=== PATIENT | female | born 2000 | race African-American/Black ===

== ENCOUNTER 2023-08-23 10:49 | Emergency (ER) | payer BC, SELFPAY ==
[2023-08-23 11:02] VITALS: BP 113/70; PULSE 83; RESP 15; TEMP 36.8; O2SAT 100
[2023-08-23 11:03] VITALS: BP 113/70; O2SAT 100
--- NOTE | 2023-08-23 11:07 | ECG_ITS ---
Measurements Intervals [place] Rate: 81 P: 39 WI: 151 QRS: 49 QRSD: 80 T: 63 QT: 365 QTc: 426 Interpretive Statements SINUS RHYTHM NO PREVIOUS ECG AVAILABLE FOR COMPARISON Electronically Signed On 08-23-2023 11:29:08 [employer] by July Ceja M.D.
[2023-08-23 11:11] VITALS: O2SAT 100
[2023-08-23 11:17] VITALS: BP 109/73; PULSE 86; O2SAT 100
[2023-08-23 11:32] VITALS: BP 108/74; PULSE 75; RESP 14; O2SAT 100
--- NOTE | 2023-08-23 12:53 | ED.GENADULT ---
HPI - General Adult General Chief complaint: Unspecified Stated complaint: infections Time Seen by Provider: 08/23/23 11:19 Source: patient Mode of arrival: ambulatory Limitations: no limitations History of Present Illness HPI narrative: this is a 23-year-old female who presents to the ED with multiple complaints. Reports multiple infections lately that she is unsure if related. reports some swelling to the distal ring finger of the right hand that eventually drained current material and has since improved she also wants couple of boil like lesions to the pubic area. reports vaginal discharge and is concern for STDs. Also reports 2-3 months of intermittent chest pains in the central chest. Denies fevers, chills, nausea, vomiting, abdominal pain, diarrhea. Related Data Allergies Allergy/AdvReac Type Severity Reaction Status Date / Time No Known Allergies Allergy Verified 08/23/23 13:11 Review of Systems Review of Systems: All systems as dictated in HPI Exam Narrative: GENERAL: Well-appearing, well-nourished, and in no acute distress. HEAD: Normocephalic, atraumatic. EYES: PERRLA and EOMI. ENT: Nares clear, no rhinorrhea or epistaxis. Mucous membranes moist. Oropharynx without tonsillar hypertrophy exudate or other lesions. NECK: Supple. No adenopathy or masses. CHEST: No respiratory distress. Clear to auscultation. No wheezes rales or rhonchi. chest wall tenderness to the left central chest that the costochondral junction. HEART: Regular rate and rhythm. No murmur heard. Normal peripheral pulses. ABDOMEN: Soft, nontender, nondistended, normal active bowel sounds. MSK: Normal range of motion. No edema. SKIN: Warm, dry, no rash. NEURO: Alert and oriented x3. No focal deficits. PSYCH: Normal mood and affect. exam deferred Course Vital Signs Vital signs: Vital Signs Temperature 98.3 F 08/23/23 11:02 Pulse Rate 83 08/23/23 11:02 Respiratory Rate 15 08/23/23 11:02 Blood Pressure 113/70 08/23/23 11:02 Pulse Oximetry 100 08/23/23 11:02 Oxygen Delivery Room Air 08/23/23 11:02 Temperature 98.2 F 08/23/23 14:13 Pulse Rate 74 08/23/23 14:13 Respiratory Rate 14 08/23/23 14:13 Blood Pressure 111/73 08/23/23 14:13 Pulse Oximetry 100 08/23/23 14:13 Oxygen Delivery Room Air 08/23/23 11:11 Medical Decision Making MDM Narrative Medical decision making narrative: This is a 23-year-old female presenting to the ED for multiple complaints. Several months of chest pain along with vaginal discharge and possible finger infection. Vitals are normal. She deferred on the exam. She self swabbed and those were negative. She still would like empiric treatment so that was started today. EKG and troponin are normal. She has chest wall tenderness indicating some costochondritis. Prescriptions for doxycycline and Flagyl were given. Pt will be discharged in stable condition. Return precautions given and supportive measures discussed. Pt is understanding and agreeable with plan for discharge and follow-up with PCP. Vital Signs Vital Signs: Vital Signs Temperature 98.3 F 08/23/23 11:02 Pulse Rate 83 08/23/23 11:02 Respiratory Rate 15 08/23/23 11:02 Blood Pressure 113/70 08/23/23 11:02 Pulse Oximetry 100 08/23/23 11:02 Oxygen Delivery Room Air 08/23/23 11:02 Temperature 98.2 F 08/23/23 14:13 Pulse Rate 74 08/23/23 14:13 Respiratory Rate 14 08/23/23 14:13 Blood Pressure 111/73 08/23/23 14:13 Pulse Oximetry 100 08/23/23 14:13 Oxygen Delivery Room Air 08/23/23 11:11 Lab Data 08/23/23 13:08 08/23/23 13:08 Labs: Lab Results 08/23/23 Range/Units 13:08 WBC 5.4 (4.5-10.0) K/mm3 RBC 4.28 (4.2-5.4) M/mm3 Hgb 12.4 (12.0-15.0) g/dL Hct 37.4 (37.0-47.0) % MCV 87.4 (80-100) fl MCH 29.0 (26-34) pg MCHC 33.2 (32-36) g/dl RDW 13.2 (11.5-14.5) % Plt
[2023-08-23] MEDS: Please add drug allergy info to patient profile. XX (13:11)
[2023-08-23 13:21] LABS: Basophils Percent Auto 0.4 % (0.2-1.2); Eosinophils Absolute Auto 0.1 K/mm3 (0-0.3); Eosinophils Percent Auto 2.2 % (0-4.4); Hematocrit 37.4 % (37.0-47.0); Hemoglobin 12.4 g/dL (12.0-15.0); Immature Granulocyte Absolute 0.01 K/mm3 (0.00-0.031); Immature Granulocyte Percent A 0.2 % (0-0.5); Lymphocytes Absolute Auto 2.34 K/mm3 (0.9-3.2); Lymphocytes Percent Auto 43.6 % (18.3-44.2); Mean Corpuscular HGB Conc 33.2 g/dl (32-36); Mean Corpuscular Volume 87.4 fl (80-100); Monocytes Absolute Auto 0.4 K/mm3 (0.1-0.6); Monocytes Percent Auto 7.1 % (2.6-8.5); Neutrophils Absolute Auto 2.5 K/mm3 (1.3-6.7); Neutrophils Percent Auto 46.5 % (45.5-73.1); Platelet Count Result 323 k/mm3 (150-375); Red Blood Count 4.28 M/mm3 (4.2-5.4); Red Cell Distribution Width 13.2 % (11.5-14.5); White Blood Count 5.4 K/mm3 (4.5-10.0)
[2023-08-23 13:26] LABS: Appearance Urine Clear (Clear); Bilirubin Urine Negative (Negative); Blood Urine Negative (Negative); Color Urine Yellow (Yellow); Glucose Urine UA Negative (Negative); Ketones Urine Negative (Negative); Leukocyte Esterase Ur Negative LEU/UL (Negative); Nitrate Urine Negative (Negative); Protein Urine Negative (Negative); Specific Grav Ur 1.012 (1.001-1.035); Urobilinogen Urine 0.2 mg/dL (<2.0); pH Urine 8.5 (5.0-9.0)
[2023-08-23 13:32] LABS: Alanine Aminotransferase 16 U/L (6-35); Albumin Level 3.8 g/dL (3.5-5.1); Alkaline Phosphatase 55 U/L (38-126); Anion Gap 3 mmol/L (8-16); Aspartate Amino Transferase 22 U/L (14-36); Bilirubin,Total 0.6 mg/dL (0.2-1.3); Blood Urea Nitrogen 11 mg/dL (7-17); Calcium 9.3 mg/dL (8.4-10.2); Carbon Dioxide 28 mmol/L (22-30); Chloride 105 mmol/L (98-107); Estimated CRCL calculation 64 ml/min; Estimated Glomerular Filt Rate > 60; Glucose 80 mg/dL (65-110); Sodium 136 mmol/L (137-145)
[2023-08-23 13:34] LABS: Add Urine Microscopic? NO
[2023-08-23 13:48] LABS: Troponin I < 0.012 ng/mL (0.000-0.034)
--- NOTE | 2023-08-23 13:50 | PC.NURSE ---
pt states they do not want an iv so they would not like iv antibiotics. pt educated on use and risks of not getting medication and pt still requests to not do an iv
[2023-08-23 14:13] VITALS: BP 111/73; PULSE 74; RESP 14; TEMP 36.8; O2SAT 100
[2023-08-23 14:27] LABS: Trichomonas Vag PCR NOT DETECTED (NOT DETECTE)
[2023-08-23 14:50] LABS: Chlamydia trachomatis NOT DETECTED (NOT DETECTE); Neisseria gonorrhoeae PCR NOT DETECTED (NOT DETECTE)
[2023-08-23] MEDS: LIDOCAINE HCL 1% LOCAL INJ 10 ML VIAL (15:16)
[2023-08-23] MEDS: cefTRIAXone 1 GM VIAL 0.5 GM IM (15:16)
== END 2023-08-23 15:21 | disposition home or self-care (01) ==
PROVIDERS: Emergency Provider Physician Assistant
DX: N89.8 Other specified noninflammatory disorders of vagina (principal)
CPT/HCPCS: 36415; 80053; 81003; 81025; 84484; 85025; 87491; 87591; 87661; 93005; 96372; 99284; J0696

== ENCOUNTER 2023-10-29 18:44 | Emergency (ER) | payer BC, SELFPAY ==
--- NOTE | 2023-10-29 19:03 | PC.NURSE ---
Pt on phone while RN attempting to obtain vital signs stating she is having abd pain that she rates 8.
[2023-10-29 19:04] VITALS: BP 133/87; PULSE 92; RESP 18; TEMP 36.4; O2SAT 100
[2023-10-29] MEDS: METOCLOPRAMIDE HCL INJ 10 MG/2 ML VIAL IM (20:28)
--- NOTE | 2023-10-29 23:33 | ED_ITS ---
HPI - Nausea/Vomiting/Diarrhea General Chief complaint: Nausea/Vomiting/Diarrhea Stated complaint: nauseated. positive preg test Time Seen by Provider: 10/29/23 20:22 History of Present Illness HPI Narrative: Patient LMP August presents here after positive test, with low er abdominal pain and some spotting that started today. Also nausea vomiting. Related Data Allergies Allergy/AdvReac Type Severity Reaction Status Date / Time No Known Allergies Allergy Verified 08/23/23 13:11 Review of Systems Review of Systems: CONST: No fever. HEENT: No sore throat C/V: No chest pain RESP: No cough GI: Reports abdominal pain, nausea : No dysuria. M/S: No joint pain. SKIN: No rash. NEURO: [No headache or focal numbness or weakness] PSYCH: [No depression] Exam Narrative: EXAMINATION OF ORGAN SYSTEMS/BODY AREAS: Constitutional: Vital signs per nursing GENERAL:[No acute distress, non-toxic appearing.] HEAD: Normal with no signs of head trauma. EYES: EOMI, conjunctiva normal ENT: Hearing grossly intact LUNGS: Nonlabored breathing. HEART: [Regular rate and rhythm] ABD: [Soft], [nontender to palpation] EXT: Normal range of motion SKIN: [No rashes or lesions.] NEURO: [Alert and oriented x 3. No gross focal sensory or strength deficits.] PSYCH: Normal affect Course Vital Signs Vital signs: Vital Signs Temperature 97.6 F 10/29/23 19:04 Pulse Rate 92 10/29/23 19:04 Respiratory Rate 18 10/29/23 19:04 Blood Pressure 133/87 10/29/23 19:04 Pulse Oximetry 100 10/29/23 19:04 Temperature 97.6 F 10/29/23 19:04 Pulse Rate 92 10/29/23 19:04 Respiratory Rate 18 10/29/23 19:04 Blood Pressure 133/87 10/29/23 19:04 Pulse Oximetry 100 10/29/23 19:04 MDM - Nausea/Vomiting/Diarrhea MDM Narrative Medical decision making narrative: Patient presenting with nausea vomiting, positive test at home, LMP 2 months ago. I did give her IM dose of Reglan, and on re-evaluation she is feeling much better no longer nauseous. I did try to do a bedside ultrasound and did see what appeared to be intrauterine gestational sac, did not seem consistent with her LMP, I did therefore order transvaginal ultrasound as well as blood work including ECG, however when ultrasound went to see the patient and with the tech went to draw her blood, patient had left without completing treatment. Lab Data Labs: UCG Bedside Result Positive Reference Range: Negative Discharge Plan Discharge Clinical Impression: Patient Disposition: Elopement After Seen by Prov Condition: Stable Prescriptions: No Action doxycycline hyclate 100 mg capsule 100 mg PO BID 7 Days Qty: 14 0RF metronidazole 500 mg tablet 500 mg PO Q8H Qty: 21 0RF Follow-up/Referrals: UNKNOWN,DOCTOR [Primary Care Provider] -
== END 2023-10-29 21:48 | disposition left against medical advice (07) ==
PROVIDERS: Emergency Provider Emergency Medicine
DX: O26.851 Spotting complicating pregnancy, first trimester (principal); Z3A.00 Weeks of gestation of pregnancy not specified; O26.891 Other specified pregnancy related conditions, first trimester; R10.30 Lower abdominal pain, unspecified; O21.9 Vomiting of pregnancy, unspecified
CPT/HCPCS: 81025; 96372; 99283; J2765

== ENCOUNTER 2024-03-11 10:35 | Emergency (ER) | payer BC, SELFPAY ==
--- NOTE | ~2024-03-11 | XR_ITS ---
EXAMINATION: XR chest 2V DATE: 03/11/2024 14:49 INDICATION: Cough and shortness of breath. . TECHNIQUE: Frontal and lateral views of the chest were obtained. COMPARISON: None. FINDINGS: There is no pneumonia, pleural effusion, or pneumothorax. The heart size is normal. IMPRESSION: 1. No acute cardiopulmonary disease. Reviewed, dictated and finalized at location A.
[2024-03-11 10:38] VITALS: BP 120/77; PULSE 86; RESP 16; TEMP 36.3; O2SAT 100
--- NOTE | 2024-03-11 10:43 | ECG_ITS ---
Test Date: 2024-03-11 10:43:55 Measurements Intervals [place] Rate: 117 P: 50 NH: 130 QRS: 59 QRSD: 73 T: 21 QT: 303 QTc: 424 Interpretive Statements SINUS TACHYCARDIA ABNORMAL RHYTHM ECG No previous ECG available for comparison Electronically Signed On 03-13-2024 12:50:50 CDT by Frank Rojas M.D.
[2024-03-11 11:00] LABS: Basophils Percent Auto 0.2 % (0.2-1.2); Eosinophils Absolute Auto 0.3 K/mm3 (0-0.3); Eosinophils Percent Auto 2.7 % (0-4.4); Hematocrit 34.8 % (37.0-47.0); Hemoglobin 12.1 g/dL (12.0-15.0); Immature Granulocyte Absolute 0.04 K/mm3 (0.00-0.031); Immature Granulocyte Percent A 0.3 % (0-0.5); Lymphocytes Percent Auto 13.3 % (18.3-44.2); Mean Corpuscular HGB Conc 34.8 g/dl (32-36); Mean Corpuscular Hemoglobin 31.3 pg (26-34); Mean Corpuscular Volume 89.9 fl (80-100); Mean Platelet Volume 8.8 fl (7.4-10.4); Monocytes Absolute Auto 0.8 K/mm3 (0.1-0.6); Monocytes Percent Auto 6.9 % (2.6-8.5); Neutrophils Absolute Auto 9.3 K/mm3 (1.3-6.7); Neutrophils Percent Auto 76.6 % (45.5-73.1); Platelet Count Result 270 k/mm3 (150-375); Red Blood Count 3.87 M/mm3 (4.2-5.4); White Blood Count 12.1 K/mm3 (4.5-10.0)
[2024-03-11 11:24] LABS: Alanine Aminotransferase 9 U/L (6-35); Albumin Level 3.7 g/dL (3.5-5.1); Alkaline Phosphatase 72 U/L (38-126); Anion Gap 7 mmol/L (4-12); Aspartate Amino Transferase 21 U/L (14-36); Bilirubin,Total 0.4 mg/dL (0.2-1.3); Blood Urea Nitrogen 4 mg/dL (7-17); Carbon Dioxide 22 mmol/L (22-30); Chloride 105 mmol/L (98-107); Estimated CRCL calculation 103 ml/min; Estimated Glomerular Filt Rate > 60; Glucose 78 mg/dL (65-110); Potassium 3.7 mmol/L (3.4-5.0); Sodium 134 mmol/L (137-145)
[2024-03-11 11:36] LABS: Troponin I < 0.012 ng/mL (0.000-0.034)
[2024-03-11 13:18] VITALS: PULSE 109; O2SAT 100
--- NOTE | 2024-03-11 14:30 | PC.NURSE ---
Pt refusing to get stuck again for an IV. Pt reports her arm hurts from previous blood draws and is refusing an IV at this time. EDP Dr. Ousmane richards.
--- NOTE | 2024-03-11 14:35 | ED.CHESTPAIN ---
HPI - Chest Pain General Chief Complaint: Chest Pain Stated Complaint: chest pain/25 weeks Time Seen by Provider: 03/11/24 13:18 History of Present Illness HPI narrative: 23-year-old female approximately 25 weeks gestation presenting with chest pain. Patient states that for the last few days she has had nasal congestion, sore throat, and cough. States that now she has some left-sided chest pain have feel short of breath. She is concerned she is dehydrated. No further complaints. Related Data Allergies Allergy/AdvReac Type Severity Reaction Status Date / Time No Known Allergies Allergy Verified 03/11/24 13:21 Review of Systems Review of Systems: All systems reviewed & are unremarkable except as noted in HPI and below Exam Narrative: GENERAL: Well-appearing, In no acute distress HEAD: Normocephalic, atraumatic. EYES: PERRLA and EOMI. ENT: + nasal congestion NECK: Supple. CHEST: Clear to auscultation. No respiratory distress. HEART: tachycardic, regular rhythm ABDOMEN: Soft, appropriately gravid, nontender EXTREMITIES: Normal range of motion. No edema. SKIN: Warm, dry, no rash. NEURO: No focal deficits. Alert and oriented x3. PSYCH: Normal mood and affect. Course Vital Signs Vital signs: Vital Signs Temperature 97.4 F L 03/11/24 10:38 Pulse Rate 86 03/11/24 10:38 Respiratory Rate 16 03/11/24 10:38 Blood Pressure 120/77 03/11/24 10:38 Pulse Oximetry 100 03/11/24 10:38 Oxygen Delivery Room Air 03/11/24 10:38 Temperature 97.4 F L 03/11/24 10:38 Pulse Rate 109 H 03/11/24 13:18 Respiratory Rate 16 03/11/24 10:38 Blood Pressure 120/77 03/11/24 10:38 Pulse Oximetry 100 03/11/24 13:18 Oxygen Delivery Room Air 03/11/24 13:18 MDM - Chest Pain MDM Narrative Medical decision making narrative: 23-year-old female with presenting with chest pain in the setting of . Patient is tachycardic in the 110s to 120s. Patient is refusing an IV. We discussed that puts her at higher risk for blood clots in the only way to evaluate for this would be with a CT PE. She continues to decline. she is alert, oriented, and she has decision-making capacity. She is able to voice understanding of the risks of not fully evaluating for PE. She is amenable to a COVID swab and chest x-ray. Blood work With leukocytosis. Chest x-ray without acute abnormalities. Patient is negative for COVID, influenza, RSV. Patient is resting comfortably on my re-evaluation. Discussed the reassuring workup. Feel she is safe for outpatient management. She is following up with a specialist on . Discussed appropriate supportive care. Appropriate return precautions given. Discharged in stable condition. Differential Diagnosis Differential diagnosis: Likely atypical chest pain, costochondritis, chest pain and other ( Viral URI, pneumonia) Medical Records Data Attestation: I reviewed the patient's medical records. Lab Data Attestation: I reviewed the patient's lab results. 03/11/24 10:53 03/11/24 10:53 Labs: Lab Results 03/11/24 03/11/24 Range/Units 10:53 14:50 WBC 12.1 H (4.5-10.0) K/mm3 RBC 3.87 L (4.2-5.4) M/mm3 Hgb 12.1 (12.0-15.0) g/dL Hct 34.8 L (37.0-47.0) % MCV 89.9 (80-100) fl MCH 31.3 (26-34) pg MCHC 34.8 (32-36) g/dl RDW 13.0 (11.5-14.5) % Plt Count 270 (150-375) k/mm3 MPV 8.8 (7.4-10.4) fl Immature Gran % (Auto) 0.3 (0-0.5) % Neut % (Auto) 76.6 H (45.5-73.1) % Lymph % (Auto) 13.3 L (18.3-44.2) % [place] % (Auto) 6.9 (2.6-8.5) % Eos % (Auto) 2.7 (0-4.4) % Baso % (Auto) 0.2 (0.2-1.2) % Lymph # (Auto) 1.60 (0.9-3.2) K/mm3 [place] # (Auto) 0.8 H (0.1-0.6) K/mm3 Eos # (Auto) 0.3 (0-0.3) K/mm3 Baso # (Auto) 0.0 (0.0-0.1) K/mm3 Abs Immat Gran (auto) 0.04 H (0.00-0.031) K/mm3 Absolute Neuts (auto) 9.3 H (1.3-6.7) K/mm3 Absolute Nucleated
[2024-03-11 15:35] LABS: Influenza A QL RT-PCR Negative (Negative); Influenza B QL RT-PCR Negative (Negative); RSV RNA, RT-PCR Negative (Negative); SARS-CoV-2 RNA PCR Negative (Negative)
== END 2024-03-11 16:27 | disposition home or self-care (01) ==
PROVIDERS: Student in an Organized Health Care Education/Training Program; Emergency Provider Emergency Medicine
DX: O99.512 Diseases of the respiratory system complicating pregnancy, second trimester (principal); J06.9 Acute upper respiratory infection, unspecified; O26.892 Other specified pregnancy related conditions, second trimester; R07.89 Other chest pain; Z20.822 Contact with and (suspected) exposure to COVID-19; O99.891 Other specified diseases and conditions complicating pregnancy; R00.0 Tachycardia, unspecified; Z3A.25 25 weeks gestation of pregnancy
CPT/HCPCS: 36415; 71046; 80053; 84484; 85025; 87637; 93005; 99284

== ENCOUNTER 2024-11-09 17:21 | Emergency (ER) | payer BC, SELFPAY ==
--- OUTSIDE RECORDS SUMMARY | 2024-11-09 17:25 | XMS_ITS | Clinical Summary ---
Author Organization [facility] Address [address] [place] [address] Care Team Providers Care Manager Clinical Applications Name Role Phone Unavailable Primary Care Provider Unavailabl e Source Comments [facility],non-owned Affiliates and Associated Physician Practices is amultiple site organization consisting of ambulatory clinics and hospital sitesin [place], [place], [place] and [place]. This disclosure is being madepursuant to the Care Everywhere program and may not contain all information available regarding this patient. Last updated 18.[facility] [employer] Allergies No known active allergies Medications * Be aware that medications may not be up to date on this document. Alwaysverify current medications with the patient. No known medications Active Problems Problem Noted Date Diagnosed Date Vaginal bleeding affecting early 02/05 Social History Tobacco Use Types Packs/Day Years Used Date Smoking Tobacco: Never Smokeless Tobacco: Never Alcohol Use Standard Drinks/Week Comments Never 0 (1 standard drink = 0.6 oz pur e alcohol) AUDIT-C Answer Date Recorded Frequency of Alcohol Consumption Never 04/19/2019 Average Number of Drinks Not on file 019 Frequency of Binge Drinking Not on file 11/2018 Comments No Sex and Gender Information Value Date Recorded Sex Assigned at Not on file Legal Sex Female 5:44 AM [employer]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[employer] Gender Identity Not on file Sexual Orientation Not on file Last Filed Vital Signs Vital Sign Reading Time Taken Comments Blood Pressure 113/80 04/19/2019 8:46 PM CDT Pulse 126 04/19/2019 8:46 PM CDT Temperature 36.8 C (98.2 F) 02/05/2021 11:42 AM CDT Respiratory Rate 22 04/19/2019 8:46 PM CDT Oxygen Saturation 100% 04/19/2019 8:46 PM CDT Inhaled Oxygen Concentration - - Weight 61.7 kg (136 lb) 02/05/2021 11:42 AM CDT Height 160 cm (5' 3 ) 02/05/2021 11:42 AM CDT Body Mass Index 24.09 02/05/2021 11:42 AM CDT Plan of Treatment Health Maintenance Due Date Last Done Comments PAP SMEAR 2000 HIV SCREENING 2015 HPV VACCINE (1 - 3-dose series) 2015 HEPATITIS C SCREENING 08/12/2018 DTAP/TDAP/TD VACCINES (1 - Tdap) 2019 HEPATITIS B VACCINE (1 of 3 - 19+ 3-dose series) 2019 CHLAMYDIA/GONORRHEA SCREENING 02/05/2022 02/05/2021 COVID-19 VACCINE (1 - 2023-2 5 season) 2024 DEPRESSION SCREENING 07/16/2024 INFLUENZA VACCINE (Season Ended) 2025 05/18/20 10 ZOSTER VACCINE (1 of 2) 2050 HIB VACCINE Aged Out No longer eligi ble based on patient's age to complete this topic MENINGOCOCCAL (Group B) VACC INE SHARED DECISION-MAKING Aged Out No longer eligibl e based on patient's age to complete this topic MENINGOCOCCAL GROUPS A/C/Y/W VACCINE Aged Out No longer eligible b ased on patient's age to complete this topic PNEUMOCOCCAL VACCINE Aged Out No long er eligible based on patient's age to complete this topic Procedures Procedure Name Priority Date/Time Associated Diagnosis Comments CHLAMYDIA + GC AMPLIFIED PROBE Routine 02/05/2021 12:53 PM CDT Vaginal bleeding affecting early from Last 3 Months or Most Recently Relevant to Health Maintenance Results * (ABNORMAL) CHLAMYDIA + GC AMPLIFIED PROBE (STL) (02/05/2021 12:53 PM CDT) Chlamydia Amplified Probe Positive(A) Negative 02/05/2021 8:43 PM CDT [facility] GC Amplified Probe Negative Negative 02/05/2021 8:43 PM CDT [facility] Microbiology PART OF UTERINE CERVIX / Unknown Collection / Unknown 02/05/2021 12:53 PM CDT 02/05/2021 1:08 PM CDT Narrative [facility] - 02/05/2021 8:43 PM CDT Results based on detection/no detection of ribosomal RNA by amplified method. us Tiffany Giordano MD LAB - MICROBIOLOGY ORDERABLES Fi nal Result [facility] [address] [place] [address], [facility] [phone] from Last 3 Months or Most Recently Relevant to Health Maintenance Insurance ANTHEM ANTHEM
--- OUTSIDE RECORDS SUMMARY | 2024-11-09 17:25 | XMS_ITS | Data Portability ---
Author Organization [employer] , [facility]Danny Address [address] [place] [address] Care Team Providers Care School Manager Name Role Phone [facility] Administrator Supervisor Assessment No assessment recorded. Plan of Treatment Reminders Order Date Submit Date Provider Last Modified By Organization Details Last Modified Time Details Appointments None recorded. Lab streptococc us group B, culture, unspecified specimen 2023 024 [facility], [address] [place], [address], 4 09:32:15 Referral None recorded. Procedures None recorded. Surgeries None recorded. Imaging None recorded. Medication Orders None recorded. Patient TargetsNo targets recorded. Patient Instructions Encounter Date Encounter Id Patient Instructions Last Modified By Organization Details Last Modified Time 05/07/2024 [id number] 3rd Trimester Warning Signs: Call our office or go to labor and delivery for any the following: Blurring of vision or spots before your eyes and/or CRUZ Ruptured membranes or leakage of vaginal fluid -may be a steady trickle or large gush - may be clear, yellow, pink or green Decreased movement--if your baby has stopped moving or is moving less than it normally does. Vaginal bleeding--bright red bleeding and/or clots need medical care immediately. Any temperature above 100 degrees. Any burning or painful urination. Increased swelling in your face, hands, or feet. Stomach pains, cramps, nausea, or diarrhea. [email or web address] Not available 05/01/2024 13:59:26 Reason for Referral None Reported. Results Created Date Observation Date Name Description Value Unit Range Abnormal Flag Note LastModifiedBy Organization Detail LastModifiedTime 05/28/20 24 05/31/2024 STREP TOCOC CUS, GROUP B CULTU RE streptococcu s, group B culture SEE NOTE STREP TOCOC CUS, GROUP B CULTU RE Micro Numbe r: [id number] Test Statu s: Final Speci men Sourc e: Recto vagin al Speci men Quali ty: Adequ ate Resul t: No group B Strep tococ cus isola artem Note per CDC guide lines optim al recov rosina is achie michelle by swabb ing both the lower vagin a and rectu m (thro ugh the anal sphin cter) . Not Available [facility] [address], [place], [address], 05/31/2024 09:32:15 04/15/20 24 04/15/2024 US, obste tric No observ ation record ed. [facility] [place], [address], 04/16/2024 07:34:25 06/03/20 24 06/03/2024 US, obste tric, follo w-up No observ ation record ed. zoey Bonds [address], [facility], [place], [address], 06/05/2024 21:38:54 Result Notes None recorded. Problems Name Problem SNOMED Code Status Onset Date Resolution Date Notes Provider Name and Address Organization Details Recorded Time Gonorrhe a 51352871 Completed 202003/17/2021 Gonococc al infectio n, unspecif ied; Progress : Stable Added By: Nisha Crane Add to Current Problems : NO ProblemS tatus: Resolve Not Available [facility] 2 12:40:00 Urinary tract infectio us disease 64971336 Completed 202003/17/2021 Urinary tract infectio n, site not specifie d; Progress : Stable Added By: Rosario Cruz Add to Current Problems : NO ProblemS tatus: Resolve Not Available [facility] 2 12:39:59 Gestatio n period, 20 weeks 14279686 Completed 202003/17/2021 20 weeks gestatio n of pregnanc y; Progress : Stable Added By: Nisha Crane Add to Current Problems : NO ProblemS tatus: Resolve Not Available [facility] 2 12:40:03 Gestatio n period, 8 weeks 07959075 Completed 202003/17/2021 8 weeks gestatio n of pregnanc y; Progress : Stable Added By: Kay Hanna Add to Current Problems : NO ProblemS tatus: Resolve Not Available [facility] 2 12:39:59 Pregnanc y, childbir th and puerperi um finding Completed 202003/17/2021 Encounte r for supervis ion of normal first pregnanc y, first trimeste r; Progress : Stable Added By: Rosario Cruz Add to Current Problems : NO ProblemS tatus: Resolve Not Available [facility] 2 12:40:00 Pregnanc y, childbir th and puerperi um finding Completed 202003/17/2021 Encounte r for supervis ion of normal first pregnanc y, second trimeste r; Progress : Stable Added By: Kay Hanna Add to Current Problems : NO ProblemS tatus: Resolve Not Available [facility] 2 12:40:[address] Concept Completed 202003/17/2021 Encounte r for follow-u p examinat ion after complete d treatmen t for conditio ns other than malignan t neoplasm ; Progress : Stable Added By: Rosario Cruz Add to Current Problems : NO ProblemS tatus: Resolve Not Available [facility] 2 12:40:08 Gestatio n period, 16 weeks 94537198 Completed 202003/17/2021 16 weeks gestatio n of pregnanc y; Progress : Stable Added By: Shanita Hemphill Add to Current Problems : NO ProblemS tatus: Resolve Not Available [facility] 2 12:40:08 Gestatio n period, 12 weeks 17244213 Completed 202003/17/2021 12 weeks gestatio n of pregnanc y; Progress : Stable Added By: Shanita Hemphill Add to Current Problems : NO ProblemS tatus: Resolve Not Available [facility] 2 12:40:05 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 [id number] 9101 Completed 202003/17/2021 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 ; Progress : Stable Added By: Rosario Cruz Add to Current Problems : NO ProblemS tatus: Resolve Not Available [facility] 2 12:40:09 Syphilis test finding 304248567 Completed 202003/17/2021 Encounte r for screenin g for infectio ns with a predomin antly sexual mode of transmis jeanne; Progress : Stable Added By: Kay Hanna Add to Current Problems : NO ProblemS tatus: Resolve Not Available [facility] 2 12:40:03 Normal pregnanc y in primigra preethi 96234250804 4103 Active 2020 Phoebe Robertson MD [address] [place], [address] , [facility] 4 12:57:17 Gestatio n period, 29 weeks 26389281 Completed 202005/28/2021 29 weeks gestatio n of pregnanc y; Severity : Moderate Progress : Stable Added By: Phoebe Robertson Add to Current Problems : YES ProblemS tatus: Current Lenora Walsh CNM [address] [place], [address] , [facility] 1 19:52:40 Gestatio n period, 26 weeks 61172790 Completed 202003/17/2021 26 weeks gestatio n of pregnanc y; Progress : Stable Added By: Shanita Hemphill Add to Current Problems : NO ProblemS tatus: Resolve Not Available [facility] 2 12:40:05 Pregnanc y 30821827 Completed 202009/04/2024 Rosario Cruz [facility], [facility] 5 15:16:33 Antenata l screenin g Completed 202003/03/2024 Encounte r for other specifie d antenata l screenin g; Progress : Stable Added By: Sofia Pedersen Add to Current Problems : YES ProblemS tatus: Current Moy stiles, [facility] 4 12:52:17 Antenata l screenin g for malforma tion Completed 202003/17/2021 Encounte r for antenata l screenin g for malforma tions; Progress : Stable Added By: Nisha Crane Add to Current Problems : NO ProblemS tatus: Resolve Not Available [facility] 2 12:39:59 Acute vaginiti s 13540251 Completed 202003/03/2024 Acute vaginiti s; Progress : Stable Added By: Sofia Pedersen Add to Current Problems : YES ProblemS tatus: Current Moy Delarosa null, [place] [facility] 4 12:52:08 Gestatio n period, 36 weeks 30011567 Completed 202003/03/2024 36 weeks gestatio n of pregnanc y; Progress : Stable Added By: Shanita Hemphill Add to Current Problems : YES ProblemS tatus: Current Moy Delarosa null, [place] [facility] 4 12:52:21 Gestatio n period, 32 weeks 7884565 Completed 202003/03/2024 32 weeks gestatio n of pregnanc y; Progress : Stable Added By: Sofia Pedersen Add to Current Problems : YES ProblemS tatus: Current Moy Delarosa null, [facility] 4 12:52:12 Nausea 777126940 Completed 202303/03/2024 Rx for Zofran and Phenerga n sent in by Karla Haq NP on 11/23/23. Had previous ly tried/fa iled Unisom Vit B6. --> Update 11/30/23: Pt states Vitamin B6 and Unisom are not working to control sx. Pt does not care for the side effects of the Zofran and Phenerga n. Discusse d consider ation for Rx Reglan to be sent as alternat adriana. Pt amenable to POC. Rx sent. Plan to re-eval sx with use and discusse d when to notify HCP/go to ER. Pt states understa nding of POC. Moy Delarosa null, [facility] 4 12:52:28 Measles non-immu ne 331010134 Completed MMR after delivery Karissa salmeron, CNM [address] [place] [address], [phone] , [facility] 4 12:09:09 Uterine size for dates discrepa ncy 307425446 Completed 2023 s/p MFM consult Phoebe Robertson MD [address] [place] [address], [phone] , [facility] 4 12:09:19 Uterine size for dates discrepa ncy 767922421 Active 2023 s/p MFM consult Phoebe Robertson MD [address] [place] [address], [phone] , [facility] 4 12:09:20 Past pregnanc y history of shoulder dystocia 870215205 Completed posterio r arm delivere d and baby delivere d w/in 60 seconds CECI HAAS DO [address] [place] [address], [phone] , [facility] 4 11:47:43 Problem Notes None recorded. Procedures Surgical History Date Name Laterality Status Provider Name and Address Organization Details Recorded Time 11/30/2023 Date of Last Pap Smear completed Moy Delarosa [facility] 03/03/2024 12:55:17 Imaging Results Imaging Date Name Status LastModified by Organiz ation Details LastModified Time 04/15/2024 US, obstetric completed [facility] [address] [place] [address], [address], 04/16/2024 07:34:25 06/03/2024 US, obstetric, follow-up completed zoey Bonds [address], [place], [address], 06/05/2024 21:38:54 Procedure Notes None recorded. Medical Equipment None Reported. Allergies No known drug allergies Medications Name Sig Start Date Stop Date Status Note LastModified by Organization Details LastModified Time id now [email or web address] 2.0 diagnosti c test TEST DIRECTED TODAY 01/02 completed Not Available Not Available Not Available Vitamin B-6 25 mg tablet TAKE ONE TABLET BY MOUTH EVERY 6 HOURS FOR VITAMIN DEFICIAN CY 11/29 completed Not Available Not Available Not Available promethaz ine 25 mg rectal supposito ry Insert 1 supposit ory every 4-6 hours by rectal route for 60 days. 11/29 completed Not Available Not Available Not Available metronida zole 0.75 % (37.5 mg/5 gram) vaginal gel Insert 1 applicat orful every day by vaginal route at bedtime for 5 days. 03/03 completed Not Available Not Available Not Available amoxicill in 500 mg tablet take 1 tablet (500 mg) by oral route every 12 hours for 10 days 11/29 completed amoxicil alli 500 mg oral tablet RxNorm: [id number] Allow Substitu tion: True Refill Denied: No Edited by: Rosario Brink) on 11/30/19 Stopped by: Rosario Brink) on 11/30/19 Not Available Not Available Not Available ondansetr on 8 mg disintegr ating tablet Place 1 tablet every 8 hours by translin gual route. 03/03 completed Not Available Not Available Not Available cimetidin e 200 mg tablet take 1 tablet (200 mg) by oral route as needed, max. 400 mg/day 11/22 completed cimetidi ne 200 mg oral tablet RxNorm: [id number] Allow Substitu tion: True Refill Denied: No Edited by: Leela andujar(Dc noJames) on 03/31/20 21 Stopped by: Leela andujar(Dc no, Anja B) on Not Available Not Available Not Available cephalexi n 500 mg capsule 04/23 completed Not Available Not Available Not Available promethaz ine 25 mg tablet Take 1 tablet every 4-6 hours by oral route as needed for 30 days, for nausea. 11/29 completed Not Available Not Available Not Available ceftriaxo ne 500 mg solution for injection Inject 500 mg IM route once 05/28 completed cefTRIAX one 500 mg injectio n Solution , Reconsti tuted RxNorm: [id number] Allow Substitu tion: True Refill Denied: No Edited by: Jazlyn Starkey) on 11/12/19 Stopped by: Jazlyn Starkey) on Not Available Not Available Not Available ibuprofen 600 mg tablet TAKE 1 TABLET BY MOUTH EVERY 6 HOURS NEEDED FOR PAIN 11/29 completed Not Available Not Available Not Available Pepcid 20 mg tablet Take 1 tablet twice a day by oral route. 04/04 completed Not Available Not Available Not Available albuterol sulfate HFA 90 mcg/actua tion aerosol inhaler INHALE TWO PUFFS BY MOUTH EVERY 4 HOURS NEEDED FOR BREATHIN G active Not Available Not Available No t Available metoclopr amide 10 mg tablet take 1 tablet (10 mg) by oral route every 6 hours as needed. 03/03 completed Not Available Not Available Not Available 3-Day Vaginal 2 % cream Insert 1 applicat orful every day by vaginal route at bedtime for 3 days. 03/03 completed Not Available Not Available Not Available azithromy alice 500 mg tablet take 2 tablets (1,000 mg) by oral route once 05/28 completed azithrom ycin 500 mg oral tablet RxNorm: [id number] Allow Substitu tion: True Refill Denied: No Edited by: Jazlyn Starkey) on 11/12/19 Stopped by: Jazlyn Starkey) on Not Available Not Available Not Available Sleep Aid (doxylami ne) 25 mg tablet TAKE ONE TABLET BY MOUTH EVERY NIGHT AT BEDTIME 03/03 completed Not Available Not Available Not Available nitrofura ntoin monohydra te/macroc rystals 100 mg capsule TAKE ONE CAPSULE BY MOUTH EVERY TWELVE HOURS FOR 7 DAYS FOR INFECTIO N 05/19 completed Not Available Not Available Not Available Vitamins with Minerals 28 mg iron-800 mcg tablet Take 1 tablet every day by oral route for 30 days. 03/03 completed Not Available Not Available Not Available 11/22 completed Allow Substitu tion: False Refill Denied: No Refill DateOccu rred: 10/30/19 21 Edited by: Shanita Voss) on 10/30/19 21 Stopped by: Shanita Voss) on Not Available Not Available Not Available 28 mg iron-800 mcg tablet TAKE ONE TABLET BY MOUTH EVERY DAY active Not Available Not Available No t Available Estarylla 0.25 mg-0.035 mg tablet TAKE 1 TABLET BY MOUTH EVERY DAY 11/22 completed Not Available Not Available Not Available Vitals Date Recorded Body weight Body mass index (BMI) Body height Body temperature Systolic blood pressure Diastolic blood pressure Provider Name and Address Organization Details Last Updated DateTime 4 44562.9 74953 g 28.9 kg/m2 160.02 cm 98.1 [degF] 100 mm[Hg] 60 mm[Hg] Sophia Juani [facility] 4 15:53:13 Date Recorded Body height Body mass index (BMI) Body weight Systolic blood pressure Diastolic blood pressure Provider Name and Address Organization Details Last Updated DateTime 05/19/2024 160.02 cm 29.4 kg/m2 41745.33 g 90 mm[Hg] 50 mm[Hg] Clayton Yuan [facility] 4 15:22:15 Date Recorded Body height Body mass index (BMI) Body weight Body temperature Systolic blood pressure Diastolic blood pressure Provider Name and Address Organization Details Last Updated DateTime 4 160.02 cm 29.8 kg/m2 23671.9 6 g 97.4 [degF] 110 mm[Hg] 68 mm[Hg] Nancie Mcdonalder [facility] 4 14:34:50 Date Recorded Body height Body mass index (BMI) Body weight Systolic blood pressure Diastolic blood pressure Provider Name and Address Organization Details Last Updated DateTime 06/03/2024 160.02 cm 30.1 kg/m2 47410.98 g 100 mm[Hg] 62 mm[Hg] Clayton Yuan [facility] 14:12:49 Date Recorded Body height Provider Name an d Address Organization Details Last Updated DateTime 06/10/2024 160.02 cm Lata Messina [facility] 06/10/2024 11:14:37 Date Recorded Body weight Body temperature Systolic blood pressure Diastolic blood pressure Provider Name and Address Organization Details Last Updated DateTime 06/10/2024 57082.29 527 g 97.5 [degF] 118 mm[Hg] 72 mm[Hg] Lata Avaloswilliamsissa [facility] 11:16:42 Social History Question Answer Notes LastModified by Organizat ion Details LastModified Time Tobacco Smoking Status Never Smoker Lata Messina go, [facility] 11/02/2023 11:45:30 What Is Your Level Of Alcohol Consumption? Occasional [email or web address] Information not available 11/02/2023 How Many Times Per Week Do You Consume Alcohol? Less Than 1 Time Per Week [email or web address] Information not available 11/02/2023 If You Are , What Was Your Level Of Alcohol Consumption Prior To ? None Information not available 11/02/2023 How Many Years Have You Consumed Alcohol? 20 [email or web address] Information not available 11/02/2023 Are You Blind Or Do You Have Difficulty Seeing? No [email or web address] Information not available 11/02/2023 Are You Currently Employed? Yes Information not available 11/02/2023 Are You Deaf Or Do You Have Serious Difficulty Hearing? No [email or web address] Information not available 11/02/2023 What Type Of Diet Are You Following? REGULAR [email or web address] Information not available 11/02/2023 What Is The Highest Grade Or Level Of School You Have Completed Or The Highest Degree You Have Received? 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 1 [email or web address] Information not available 11/02/2023 What Is Your Relationship Status? Single [email or web address] Information not available 11/02/2023 Are You Sexually Active? Yes Information not available 11/02/2023 What Types Of Sporting Activities Do You Participate In? Walking [email or web address] Information not available 04/04/2024 Do You Use Any Illicit Or Recreational Drugs? No [email or web address] Information not available 11/02/2023 Do You Or Have You Ever Used Any Other Forms Of Tobacco Or Nicotine? No [email or web address] Information not available 11/02/2023 Sex: Unknown Functional Status Question Answer Note LastModified by Organization D etails LastModified Time What is your exercise level? Moderate [email or web address] Information not available 11/02/2023 Mental Status None recorded. Family History Relationship Description Onset Age of this Age Resolved Age Notes LastModified by Organization Details LastModified Time Father No current problems or disability [email or web address] Not available 05/28 19:55:21 Mother Diabetes mellitus [email or web address] Not available 2023 11:30:13 Medical History Condition Response Other Cancer N High Blood Pressure N Colon Cancer N Cytomegalovirus N Hyperthyroidism N MRSA N Blood Transfusion N Herpes (HSV) N Breast Cancer N Lung Cancer N Hypothyroidism N Depression N Incontinence N Panic Attacks N Neurological Disorder N Deep Vein Thrombosis N Anxiety Disorder N Autoimmune disease N Arthritis N Shingles N Tuberculosis/Positive PPD N Infertility N Polycystic Ovarian Syndrome N Cervical Cancer N Chlamydia N Hematuria N Stroke N Varicosities N Seasonal allergies N Crohn's Disease N Alzheimer's/Dementia N COPD/Emphysema N Endometriosis N HPV/Genital Warts N IBS (Irritable Bowel Syndrome) N History of Abnormal Pap N High Cholesterol N Liver Disease N Kidney Infection N Fibromyalgia N Ulcer N Kidney Disease N HIV N Gallbladder disease N Von Willebrand disease N Sickle Cell Disease/Trait N ADD/ADHD N Eating Disorder N Diabetes Mellitus (non-insulin dependent ) N Anemia N Ovarian Problems N Multiple Sclerosis N Gonorrhea N Frequent Urinary Tract infections N Osteopenia N Headaches/migraines N GERD (reflux) N Ovarian Cancer N Diabetes (insulin dependent) N Seizures/Epilepsy N Breast Problems N Fibroids N Asthma N Heart Attack N Endometrial Cancer N Lupus N Rubella N Blood Clotting Disorder N Bipolar Disorder N Diabetes Mellitus (during ) N Ulcerative Colitis N Hepatitis N Heart Disease N Pulmonary Embolism N RPR N Chicken Pox N Osteoporosis N Gynecological History Statement/Question Response Flow Moderate Date of last HPV Date of LMP 09/14/2023 HPV Vaccine Y Duration of Flow (days) 5 Most Recent Mammogram Current Control Method Age at Menarche 11 If Post Menopausal, Age at Menopause Date of Last Colonoscopy Most Recent Bone Density Frequency of Cycle (Q days) 28 Date of Last Pap Smear 11/30/2023 Obstetrics History GPAL:G 2 P 1 0 0 1 Type Value Full Term 1 Living 1 Total 2 Past Encounters Encounter ID Performer Location Encounter Start Date Encounter Closed Date Diagnosis/Indication Diagnosis SNOMED-CT Code Diagnosis ICD10 Code Diagnosis Note [id number] Lenora Walsh CNM [address] [address] 05/28/2021 12:01:57 05/28/2021 20:05:16 Normal in primigravida 7907614400 05497 Z34.03 .COUNSELIN G was provided today regarding the following topics: All risks and benefits of induction of labor were discussed with the patient. intoleranc e to labor and arrest of labor progress resulting in section were reviewed in detail. Pt wishes to proceed. Gestation period, 38 weeks 52840289 Z3A.38 [id number] DEONTE Newton [address] [address] 11/02/2023 10:56:50 11/02/2023 12:06:00 test positive 020044410 Z32.01 26849052 Z33.1 viable SIUP at 7.0 weeks gestationE DD 06/20/24FHT s 121 bpm Nausea and vomiting 1692 1999 R11.2 *nausea of - advised patient to keep cracker at the bedside to eat before getting out of bed in the morning, eat smaller more frequent meals during the day, and avoid mixing solids and liquids in the same meal. add protein snack at bedtime; Vit B6 & unisom as needed [id number] DEONTE Newton [address] [place] [address] 11/23/2023 10:45:34 11/23/2023 13:44:13 Nausea and vomiting 08498667 R11.2 Rx for phenergan rectal suppositor y and zofran advised patient to keep crackers at the bedside to eat before getting out of bed in the morning, eat smaller more frequent meals during the day, and avoid mixing solids and liquids in the same meal. add protein snack at bedtime; continue B6 and unisom in addition to new prescripti ons. 56141715 Z33.1 FHTs heard- 165 bpm. Additional diagnosis detail: , incidental [id number] DEONTE Monson [facility] [address] [place] [address] 11/30/2023 09:57:57 12/06/2023 13:32:29 Routine care 651426788 Z34.91 1. IUP FWB reassuring by + FHT noted on BSUS. Aneuploidy screening: UNITY NIPT added to NOB labs; results pending. Plan to discuss MSAFP after 15 wks. Anatomy Scan:2. NOB labs drawn on 11/30/23. Pap with GCCT collected and sent. GTT: GBS: ____3. Hx: [id number] L1, X 14. Nausea - Rx for Zofran and Phenergan sent in by Karla Haq NP on 11/23/23. Had previously tried/fail ed Unisom Vit B6. --> Update 11/30/23: Pt states Vitamin B6 and Unisom are not working to control sx. Pt does not care for the side effects of the Zofran and Phenergan. Discussed considerat ion for Rx Reglan to be sent as alternativ e. Pt amenable to POC. Rx sent. Plan to re-eval sx with use and discussed when to notify HCP/go to ER. Pt states understand ing of POC.5. Threatened Ab - Pt notes bleeding in early , but nothing recently. No blood in vault, but cervix friable with pap collection . Pap with vag cx collected and sent on 11/30/23. Further POC pending lab result review. A+ per prior OB records. No need for Rhogam. Pt educated on TAB Precaution s and discussed when to notify HCP/go to ER. Pt states understand ing of POC.6. Cramping - pt states happens when she's on her feet a lot at work. Pt states sx resolve with rest. James has already given her a restrictio ns note. 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 Last day on 12/07/23. Pt does not work over the Summer. Pap with GCCT collected and sent. Discussed eating smaller/mo re frequent meals, pushing p.o. water intake, using anti-emeti c medication s to reduce n/v sx, and on OTC pain meds as needed. Pt educated on TAB precaution s and discussed when to notify HCP/go to ER. Pt states understand ing of POC.7. Delivery Plans:8. PP Contracept ion Plans: Follow up in 4 weeks.Enoch tional diagnosis detail: First trimester screening 2437 37942 Z36.9 Additional diagnosis detail: screening encounter Screening for malignant neoplasm of cervix 500711840 Z12.4 Nausea and vomiting 1693 2000 O21.9 Additional diagnosis detail: Nausea/vom iting in Carrier de tection, molecular genetics 9504301 Z14.8 Pain in female pelvis 42 3795820 O26.899 R10.2 Additional diagnosis detail: Pelvic pain in Threatened miscarriage 93918313 O20.0 Additional diagnosis detail: Threatened [id number] [facility] [address] [place] [address] 01/03/2024 11:57:05 01/03/2024 12:29:42 Alpha-fetoprotein blood test status 938185556 Z36.1 DeclinedAd ditional diagnosis detail: Need for maternal serum alpha-prot ein (MSAFP) screening Gestation period, 15 weeks [id number] Z3A.15 Additional diagnosis detail: 15 weeks gestation of [id number] CRISTEL [facility] [address] [place] [address] 02/04/2024 09:43:12 02/04/2024 10:42:16 screening [id number] Z36.9 Gestation period, 20 weeks 14893823 Z3A.20 screening for malformation 816886968 Z36.3 Symmetrica l small for gestational age fetus [id number] P05.[address] Haas. Will get TORCH panel today and repeat growth in 4 weeks. Small Baby IUGR Growth Restrictio nParvoviru s B19 antibodies IgG, IgMToxopla sma antibody IgGCytomeg alovirus Antibodies IgG, IgM(IgG shows past infection) care status 24 4457949 Z34.92 Additional diagnosis detail: care in second trimester [id number] Phoebe Robertson MD [address] [address] 03/03/2024 12:11:01 03/03/2024 14:42:37 Normal 15856464 Z34.82 Uterine si ze for dates discrepancy 367611653 O26.842 Refer to [facility] Gestation period, 24 weeks 199150213 Z3A.24 Gastroesop hageal reflux disease 186511319 K21.9 [id number] Phoebe Robertson MD [address] [address] 04/04/2024 11:10:03 04/04/2024 12:26:52 Normal 93096463 Z34.83 Gestation period, 29 weeks 95977184 Z3A.29 screening 2437 42633 Z36.89 Dysuria 45474882 R30.0 Vaginal discharge 738166 006 N89.8 Depression screening 171 408100 Z13.32 [id number] Lenora Walsh CNM [address] [address] 04/23/2024 15:20:32 04/23/2024 15:55:31 Normal 35944917 Z34.83 Denies vaginal bleeding, abdominal cramps, N/V, contractio ns, and LOF. Denies headache, vision changes, swelling of hands or face, or epigastric pain. Reports active movement. movement awareness discussed. PTL precaution s reviewed Gestation period, 31 weeks 82540509 Z3A.31 Recurrent upper respiratory tract infection 789459070 J06.[id number] [address] 05/07/2024 15:37:28 05/07/2024 16:47:12 Normal 91943309 Z34.83 Denies vaginal bleeding, abdominal cramps, N/V, contractio ns, and LOF. Denies headache, vision changes, swelling of hands or face, or epigastric pain. Reports active movement. movement awareness discussed. PTL precaution s reviewed Gestation period, 33 weeks 27204381 Z3A.33 [id number] Karissa salmeron, [facility] [address] [place] [address] 05/19/2024 14:51:15 05/19/2024 16:58:00 Normal 68127060 Z34.83 Gestation period, 35 weeks 02155086 Z3A.35 [id number] Frank Haq, DO [facility] [address] [place] [address] 05/28/2024 14:25:43 06/02/2024 11:10:04 screening 915451247 Z36.85 Normal 9983541 2 Z34.83 1. We will order for an ultrasound to be done before next visit.2. Discussed induction of labor at the next appointmen t. [id number] Karissa salmeron, [facility] [address] [place] [address] 06/03/2024 12:41:41 06/03/2024 15:08:24 Normal 83045870 Z34.82 Gestation period, 37 weeks 94250452 Z3A.37 [id number] CECI HOMERO, DO [facility] [address] [place] [address] 06/10/2024 11:05:21 06/10/2024 11:49:47 Normal 77169497 Z34.82 Gestation period, 38 weeks 36350092 Z3A.38 Health Concerns Section Related Observation LastModified by Organization Detai ls LastModified Time None Recorded Concern Status LastModified by Organization Details LastModified Time None Recorded Advance Directives Directive None Recorded Payers Encounter Date Sequence Insurance Name Policy Number Policy Manriquez Covered Member ID Manriquez Member ID Guarantor Name 05/07/2024 1 [place] [id number] Irene Sebastian [id number] Irene Sebastian 05/19/2024 1 [place] [id number] Irene Sebastian [id number] Irene Sebastian 05/28/2024 1 [place] [id number] Irene Sebastian [id number] Irene Sebastian 06/03/2024 1 [place] [id number] Irene Sebastian [id number] Irene Sebastian 06/10/2024 1 [place] [id number] Irene Sebastian [id number] Irene Sebastian Notes Date Note Type Note Provider Name and Address Organization Details Recorded Time 05/07/2024 text/html Patient is here today for a routine OB visit. She is currently at {{6 7 8 9 10 11 12 13 14 15 16 17 18 1 9 20 21 22 23 24 25 26 27 28 29 30 31 32 33 34 35 36 37 3 8 39 40 41 33.5#}} weeks gestation. vitamins: {{yes* no}} She {{has* has not}} felt movement. She denies any complaints of the presence of vaginal bleed, leaking fluid, abdominal cramps, nausea, vomiting, headache or visual disturbances. Lenora Walsh, [facility] [address] [place], [address], [facility] [employer] 05/07/2024 17:10:46 05/19/2024 text/html Patient is here today for a routine OB visit. She is currently at {{6 7 8 9 10 11 12 13 14 15 16 17 18 1 9 20 21 22 23 24 25 26 27 28 29 30 31 32 33 34 35 36 37 3 8 39 40 41 35.3#}} weeks gestation. vitamins: {{yes* no}} She {{has* has not}} felt movement. She denies any complaints of the presence of vaginal bleed, leaking fluid, abdominal cramps. Pt c/o nausea, vomiting , headache or visual disturbances. Pt states she is feeling contractions Karissa Mejia, [facility] [address] [place], [address], [facility] [employer] [facility] 05/19/2024 15:56:49 05/28/2024 text/html [facility] OB Return VisitReported bypatient. symptoms: movement normal; normal vaginal discharge/no ROM; no bleeding; pelvic pressure; no contractions/mild cramping only Gastrointestinal:na usea Cardiovascular:richard a Musculoskeletal:no joint pain Neurologic:no headache; no visual changes Breast:plans to breast feed Social/psychiatric issues:no reported concerns with support system; no anxiety; no symptoms of depression The patient verbally consented to documentation via virtual scribe for this encounter.Patient is here today for a routine OB visit. She is currently at 36.5 weeks gestation. She is taking vitamins. She has felt movement.She reports her last delivery was at 39 weeks and 3 days gestation and was induced due to a large size. She has a history of dystocia with her last delivery.She denies any complaints of the presence of vaginal bleed, leaking fluid, abdominal cramps, nausea, vomiting, headache or visual disturbances. Frank Haq DO [facility], [facility] [place], [address], [employer] 05/31/2024 14:43:33 06/03/2024 text/html Patient is here today for a routine OB visit. She is currently at {{6 7 8 9 10 11 12 13 14 15 16 17 18 1 9 20 21 22 23 24 25 26 27 28 29 30 31 32 33 34 35 36 37 3 8 39 40 41 37.4#}} weeks gestation. vitamins: {{yes* no}} She {{has* has not}} felt movement. She denies any complaints of the presence of vaginal bleed, leaking fluid, abdominal cramps, nausea, vomiting, headache or visual disturbances. No concerns Karissa Mejia CNM [address] [facility], [place], [address], [employer] 06/03/2024 14:23:16 06/10/2024 text/html Patient is here today for a routine OB visit. She is currently at 38.4 weeks gestation. vitamins: {{yes* no}} She {{has* has not}} felt movement.She denies any complaints of the presence of vaginal bleed, leaking fluid, abdominal cramps, nausea, vomiting, headache or visual disturbances. CECI HAAS, DO [address] [facility], [place], [address], [facility] 06/10/2024 11:48:36 OBGyn Episode Ob Episode Information Episode Created Date Number of Fetuses Patient Bloodtype Patient rh Status Prepregnancy Weight lbs Domestic Partner Domestic Partner Phone Father Name Supervisor [employer] Status 05/28/20 21 1 CLOSED Fetus Data First Name Last Name Admitted to NICU Weight (g) Sex Living Outcome Pediatric Complications Fetus ID Race Codes Race Delivery Type M Full Term [id number] Anthony Calculation Initial Anthony Date Initial Exam Date Initial Exam Provider Initial Ultrasound Date Last Menstrual Period Date Ultra Sound Weeks Gestation 06/08/2021 05/28/2021 10/29/2020 09/01/2020 8 Eighteen To Twenty Week Anthony Update Ultra Sound Date Fundal Height At Umbil Quickening Date Ultra Sound Latest Weeks Gestation Final Anthony Confirmed By Final Anthony Confirmed Date Final Anthony Date Ultra Sound Latest Days Gestation 0 06/08/20 21 0 Pre-donn Flowsheet Flowsheet Date 05/28/2021 Katz Score Blood Edema Fundus Height Fundus Units Glucose Ketones Leukocytes Nitrite Labor Signs Protein Cervic Dilation Cervic Effacement Cervic Station Type Weight in lbs Pre/Post Dialysis Refused BP Diastolic BP Location Tested BP Systolic BP Type Fetus Heart Rate Present Fetus Movement Comments Flowsheet Date 05/28/2021 Katz Score Blood Edema Fundus Height Fundus Units Glucose Ketones Leukocytes Nitrite Labor Signs Protein Cervic Dilation Cervic Effacement Cervic Station trace 39 [place] 1cm 50% -2 Type Weight in lbs Pre/Post Dialysis Refused BP Diastolic BP Location Tested BP Systolic BP Type 74 L arm 128 sitting Fetus Heart Rate Present A 154 Fetus Movement A Yes Comments GBS: Positive- For Abx in [place] bor. A positive/Rubella immune Sickle cell negative. 28 wks GCT 105; H/H 11.1/33.93. CT/NG: NORI neg. 4. Heartburn: tums working; pepcid recommended for increasing complaints. 5. Wants to schedule IOL with Joby. IOL scheduled for 06/02 @ 0100. Menstrual History Last Menstrual Date Menses Monthly On Bcp Conception Prior Menses Frequency Hcg Plus Date Menarche Onset Age 0209/01/2020 Genetic Screening And Infection History Question Response Note Mental Retardation/Autism false [place]'s [place] false If Yes, Was Person Tested For Fragile X? false Other Inherited Genetic Or Chromosomal Disorder false If Yes, Agent(s) And Strength/Dosage false Sickle Cell Disease Or Trait () false Personal or Family History of Congenital Heart D efect false Rash Or Viral Illness Since Last Menstrual Perio d false Muscular Dystrophy false Medications (including Suppl ements, Vitamins, Herbs, OTC Drugs), Illicit/Recreational Drugs, Alcohol false Other Structural Defect false Down Syndrome false Recent Travel History Outside of Country false Cystic Fibrosis false Any Other Genetic History false Emmanuel Disease false Other Infection History false Thalassemia (Nigerien, Ugandan, Mediterranean, Or Background): MCV < 80 false Patient Or Baby's Father Had A Child With Defects Not Listed Above false Live With Someone With TB Or Exposed To TB false Patient's Age Will Be 35 Years Or Older At Estim ated Date of Delivery false Recurrent Loss, Or A Stillbirth false Hemoglobinopathy Or Carrier false Patient Or Partner Has History Of Genital Herpes false Intellectual Disability/Autism false Maternal Metabolic Disorder (eg, Type 1 Diabetes , PKU) false History of Hepatitis false Benitez-Sachs (eg, Islam, Cajun, Khmer-Lebanese) f alse History Of STD, Gonorrhea, Chlamydia, HPV, Syphi lis false Prior GBS-infected child false History of HIV false Personal or Family History o f Neural Tube Defect (Meningomyelocele, Spina Bifida, Or Anencephaly) false Hemophilia Or Other Blood Disorders false Delivery Information Delivery Date Delivery Type Labor Anesthesia Weeks Gestation Incision Type Labor Labor Length Hrs Delivered By Post Complications Tubal Sterilization Discharge Date Comments 1 39.3 Juliann Mehta MD 06/06/2021 Discharge Information Feeding Method Contraceptive Method Maternal HG B and HCT Levels Ob Episode Information Episode Created Date Number of Fetuses Patient Bloodtype Patient rh Status Prepregnancy Weight lbs Domestic Partner Domestic Partner Phone Father Name Supervisor [employer] Plant Status 11/23/19 24 1 A Positive CLOSED Fetus Data First Name Last Name Admitted to NICU Weight (g) Sex Living Outcome Pediatric Complications Fetus ID Race Codes Race Delivery Type F Problems Problem Notes Problem Name Start Date End Date Resolution Snomed Code Not e Measles non-immune 377833901 M MR after delivery Uterine size for dates discrepancy 03/03/2024 [id number] s/p MFM consult Past history of shoulder dystocia [id number] posteri or arm delivered and baby delivered w/in 60 seconds Anthony Calculation Initial Anthony Date Initial Exam Date Initial Exam Provider Initial Ultrasound Date Last Menstrual Period Date Ultra Sound Weeks Gestation 06/20/2024 11/02/2023 09/14/2023 6 Eighteen To Twenty Week Anthony Update Ultra Sound Date Fundal Height At Umbil Quickening Date Ultra Sound Latest Weeks Gestation Final Anthony Confirmed By Final Anthony Confirmed Date Final Anthony Date Ultra Sound Latest Days Gestation 0 awittler 11/26/2023 06/20/20 24 0 Pre- Flowsheet Flowsheet Date 11/23/2023 Katz Score Blood Edema Fundus Height Fundus Units Glucose Ketones Leukocytes Nitrite Labor Signs Protein Cervic Dilation Cervic Effacement Cervic Station Type Weight in lbs Pre/Post Dialysis Refused Weight 138.609029963404 BP Diastolic BP Location Tested BP Systolic BP Type 68 110 Fetus Heart Rate Present Fetus Movement Comments Flowsheet Date 11/30/2023 Katz Score Blood Edema Fundus Height Fundus Units Glucose Ketones Leukocytes Nitrite Labor Signs Protein Cervic Dilation Cervic Effacement Cervic Station none none Other (see comments ) neg Type Weight in lbs Pre/Post Dialysis Refused With clothes 137.905746427337 BP Diastolic BP Location Tested BP Systolic BP Type 60 106 sitting Fetus Heart Rate Present A 165 Present Fetus Movement A Yes Comments See Visit Plan/Above Problem List. Flowsheet Date 01/03/2024 Katz Score Blood Edema Fundus Height Fundus Units Glucose Ketones Leukocytes Nitrite Labor Signs Protein Cervic Dilation Cervic Effacement Cervic Station Type Weight in lbs Pre/Post Dialysis Refused 141.051822904343 BP Diastolic BP Location Tested BP Systolic BP Type 58 104 Fetus Heart Rate Present A 144 Fetus Movement A Yes Comments MSAFP declined, Reviewed Bertha sles NI and MMR in PP, FU in 4 weeks for Anatomy US Flowsheet Date 02/04/2024 Katz Score Blood Edema Fundus Height Fundus Units Glucose Ketones Leukocytes Nitrite Labor Signs Protein Cervic Dilation Cervic Effacement Cervic Station none Type Weight in lbs Pre/Post Dialysis Refused With clothes 148.358035931780 BP Diastolic BP Location Tested BP Systolic BP Type 68 106 sitting Fetus Heart Rate Present A 152 Present Fetus Movement A Yes Comments Anatomy today complete. SGA 5.2%tile, HC 5.2%tile, AC 8.9%tile. Normal AFV, normal cervical length, anterior placenta. Discussed with Dr. Plascencia- will get TORCH panel today and repeat growth in 4 weeks. Flowsheet Date 03/03/2024 Katz Score Blood Edema Fundus Height Fundus Units Glucose Ketones Leukocytes Nitrite Labor Signs Protein Cervic Dilation Cervic Effacement Cervic Station none none none neg Type Weight in lbs Pre/Post Dialysis Refused With clothes 153.607816092464 BP Diastolic BP Location Tested BP Systolic BP Type 64 98 sitting Fetus Heart Rate Present A 145 Present Fetus Movement A Yes Comments Follow up u/s confirms today size less than dates. TORCH panel screen negative (CMV/Parvo B19 both IGG pos, IGM neg). Refer to M.c/o intermittent chest pain. On further questioning CP likely related to GERD symptoms. She is currently using Tums. Start Pepcid 20 mg BID and if CP returns, patient should go to the hospital for evaluation. Flowsheet Date 04/04/2024 Katz Score Blood Edema Fundus Height Fundus Units Glucose Ketones Leukocytes Nitrite Labor Signs Protein Cervic Dilation Cervic Effacement Cervic Station none 28 cm none none neg Type Weight in lbs Pre/Post Dialysis Refused With clothes 156.312432122158 BP Diastolic BP Location Tested BP Systolic BP Type 50 110 sitting Fetus Heart Rate Present A 135 Fetus Movement A Yes Comments 3T labs today. c/o vaginal d ischarge. no itchiness or irritation. Tdap/Flu vaccine recommended. Discussed Peds selection/breast pump. Flowsheet Date 04/23/2024 Katz Score Blood Edema Fundus Height Fundus Units Glucose Ketones Leukocytes Nitrite Labor Signs Protein Cervic Dilation Cervic Effacement Cervic Station none neg Type Weight in lbs Pre/Post Dialysis Refused With clothes 161.331087763893 BP Diastolic BP Location Tested BP Systolic BP Type 60 100 sitting Fetus Heart Rate Present A 147 Fetus Movement A Yes Comments No OB concerns. Pt was seen in ED for SOB - concerned about asthma since ED doc told that it is most likely related to that. Will send pulmonology referral. Inhaler sent. F/u in 2 wks Flowsheet Date 05/07/2024 Katz Score Blood Edema Fundus Height Fundus Units Glucose Ketones Leukocytes Nitrite Labor Signs Protein Cervic Dilation Cervic Effacement Cervic Station none trace Type Weight in lbs Pre/Post Dialysis Refused With clothes 163.257551413851 BP Diastolic BP Location Tested BP Systolic BP Type 60 100 sitting Fetus Heart Rate Present A 158 Fetus Movement A Yes Comments Was seen at the hospital for PTL - was 1 cm. Continues to have ctx frequently. Some days they are getting more intense. Off work for contractions until 36 wks. PTL precautions reviewed in detail. F/u in 2 wks. Flowsheet Date 05/19/2024 Katz Score Blood Edema Fundus Height Fundus Units Glucose Ketones Leukocytes Nitrite Labor Signs Protein Cervic Dilation Cervic Effacement Cervic Station 37 cm none trace Type Weight in lbs Pre/Post Dialysis Refused With clothes 166.939992926086 BP Diastolic BP Location Tested BP Systolic BP Type 50 90 sitting Fetus Heart Rate Present A 140 Fetus Movement Comments Ctx continue ~15-20 minutes apart reviewed strict PTL precautions Flowsheet Date 05/28/2024 Katz Score Blood Edema Fundus Height Fundus Units Glucose Ketones Leukocytes Nitrite Labor Signs Protein Cervic Dilation Cervic Effacement Cervic Station Type Weight in lbs Pre/Post Dialysis Refused With clothes 168.768089067238 BP Diastolic BP Location Tested BP Systolic BP Type 68 L arm 110 sitting Fetus Heart Rate Present Fetus Movement Comments Flowsheet Date 06/03/2024 Katz Score Blood Edema Fundus Height Fundus Units Glucose Ketones Leukocytes Nitrite Labor Signs Protein Cervic Dilation Cervic Effacement Cervic Station none trace Type Weight in lbs Pre/Post Dialysis Refused With clothes 169.382793064339 BP Diastolic BP Location Tested BP Systolic BP Type 62 100 sitting Fetus Heart Rate Present Fetus Movement A Yes Comments 21%st no ob concerns today Flowsheet Date 06/10/2024 Katz Score Blood Edema Fundus Height Fundus Units Glucose Ketones Leukocytes Nitrite Labor Signs Protein Cervic Dilation Cervic Effacement Cervic Station none neg Type Weight in lbs Pre/Post Dialysis Refused With clothes 171.713005717853 BP Diastolic BP Location Tested BP Systolic BP Type 72 118 sitting Fetus Heart Rate Present A 145 Fetus Movement A Yes Comments no ob complaints and pt does n't have any questions for IOLlabor/srom precuations given Menstrual History Last Menstrual Date Menses Monthly On Bcp Conception Prior Menses Frequency Hcg Plus Date Menarche Onset Age 0309/14/2023 Genetic Screening And Infection History Question Response Note Prior GBS-infected child false Personal or Family History of Congenital Heart D efect false Maternal Metabolic Disorder (eg, Type 1 Diabetes , PKU) false Recurrent Loss, Or A Stillbirth false Genetic Carrier Screen positive false Patient Or Partner Has History Of Genital Herpes false Patient's Age Will Be 35 Years Or Older At Estim ated Date of Delivery false Personal or Family History o f Neural Tube Defect (Meningomyelocele, Spina Bifida, Or Anencephaly) false History of HIV false Delivery Information Delivery Date Delivery Type Labor Anesthesia Weeks Gestation Incision Type Labor Labor Length Hrs Delivered By Post Complications Tubal Sterilization Discharge Date Comments 4 Sponta neous 39 Discharge Information Feeding Method Contraceptive Method Maternal HG B and HCT Levels Ob Episode Information Episode Created Date Number of Fetuses Patient Bloodtype Patient rh Status Prepregnancy Weight lbs Domestic Partner Domestic Partner Phone Father Name Supervisor [employer] Plant Status 11/30/19 24 1 DELETED Anthony Calculation Initial Anthony Date Initial Exam Date Initial Exam Provider Initial Ultrasound Date Last Menstrual Period Date Ultra Sound Weeks Gestation 0 Eighteen To Twenty Week Anthony Update Ultra Sound Date Fundal Height At Umbil Quickening Date Ultra Sound Latest Weeks Gestation Final Anthony Confirmed By Final Anthony Confirmed Date Final Anthony Date Ultra Sound Latest Days Gestation 0 0 Menstrual History Last Menstrual Date Menses Monthly On Bcp Conception Prior Menses Frequency Hcg Plus Date Menarche Onset Age Delivery Information Delivery Date Delivery Type Labor Anesthesia Weeks Gestation Incision Type Labor Labor Length Hrs Delivered By Post Complications Tubal Sterilization Discharge Date Comments 3 7 Discharge Information Feeding Method Contraceptive Method Maternal HG B and HCT Levels
--- OUTSIDE RECORDS SUMMARY | 2024-11-09 17:25 | XMS_ITS | Referral Summary ---
Author Organization [place] [id number] [facility] Address [address] [place] [address] Care Team Providers Care Machine Group Leader Name Role Phone Jean Claude Preston MD Primary Care Provider Juliann Mehta MD Unavailable [phone] Allergies No known active allergies Medications 28 mg iron- 800 mcg tablet 04/22/2021 Active albuterol HFA (PROVENTIL HFA,VENTOLIN HFA,PROAIR HFA) 90 mcg/actuation inhaler Inhale 2 puffs every 6 (six) hours as needed for wheezing Active acetaminophen (TYLENOL) 500 mg tablet Take 2 tablets (1,000 mg total) by mouth every 6 (six) hours as needed for pain 80 tablet 06/15/2024 Active docusate sodium (COLACE) 100 mg capsuleIndicati ons:constipatio n,Stool Softener Take 1 capsule (100 mg total) by mouth 2 (two) times a day 30 capsule 3 06/15/2024 Active ibuprofen (ADVIL,MOTRIN) 600 mg tabletIndicatio ns:Cramps Take 1 tablet (600 mg total) by mouth every 6 (six) hours as needed for pain 40 tablet 06/15/2024 Active Active Problems Problem Noted Date Diagnosed Date 39 weeks gestation of 06/14/2024 Encounter for induction of labor 06/02/2021 Social History Tobacco Use Types Packs/Day Years Used Date Smoking Tobacco: Never Tobacco Cessation:Counseling Given: Not Answered Social Connection and Isolat ion Panel [NHANES] Answer Date Recorded In a typical week, how many times do you talk on the phone with family, friends, or neighbors? More than three times a week 05/01/2024 How often do you get togethe r with friends or relatives? More than three times a week 05/01/2024 How often do you attend chur ch or caodaism services? Never 05/01/2024 Do you belong to any clubs o r organizations such as buddhist groups, unions, fraternal or athletic groups, or school groups? Yes 05/01/2024 How often do you attend meet ings of the clubs or organizations you belong to? More than 4 times per year 05/01/2024 Are you , , di vorced, , never , or living with a partner? Living with partner 05/01/2024 AUDIT-C Answer Date Recorded Q1: How often do you have a drink containing alcohol? Never 06/13/2024 Q2: How many drinks containi ng alcohol do you have on a typical day when you are drinking? Patient does not drink Q3: How often do you have si x or more drinks on one occasion? Never 06/13/2024 Overall Financial Resource Strain (CARDIA) Answe r Date Recorded How hard is it for you to pa y for the very basics like food, housing, medical care, and heating? Not hard at all 06/13/2024 PHQ-2 Answer Date Recorded PHQ-2 Total Score (If total score is 3 or more points, staff should administer the PHQ-9) 2 05/01/2024 [facility]at [facility] - Occupational Stress Questionnaire Answer Date Recorded Do you feel stress - tense, restless, nervous, or anxious, or unable to sleep at night because your mind is troubled all the time - these days? Not at all 05/01/2024 Hunger Vital Sign Answer Date Recorded Within the past 12 months, y ou worried that your food would run out before you got the money to buy more. Never true 06/13/20 24 Within the past 12 months, t he food you bought just didn't last and you didn't have money to get more. Never true 06/13/2024 PRAPARE - Transportation Answer Date Re corded In the past 12 months, has l ack of transportation kept you from medical appointments or from getting medications? No 05/17 In the past 12 months, has l ack of transportation kept you from meetings, work, or from getting things needed for daily living? No 06/13/2024 [place] Depression Scale Answer Date Recorded [place] Depression Scale Total 5 06/15/2024 The thought of harming myself has occurred to me . Never 06/15/2024 Housing Stability Vital Sign Answer Wojciech e Recorded In the last 12 months, was t here a time when you were not able to pay the mortgage or rent on time? No 06/13/2024 Number of Times Moved in the Last Year Not on fi le 06/13/2024 At any time in the past 12 m [facility], were you homeless or living in a longterm (including now)? No 06/13/2024 Personal Safety Answer Date Recorded Have you ever been in or are you currently in a harmful physical or emotional relationship or is someone making you feel afraid or unsafe? Denies 06/13/2024 Comments No Sex and Gender Information Value Date Recorded Sex Assigned at Not on file Legal Sex Female 6:01 AM DIRT SHOVELER Gender Identity Not on file Sexual Orientation Not on file Last Filed Vital Signs Vital Sign Reading Time Taken Comments Blood Pressure 103/56 06/15/2024 6:28 AM DIRT SHOVELER Pulse 73 06/15/2024 6:28 AM DIRT SHOVELER Temperature 36.7 C (98 F) 06/15/2024 6:28 AM DIRT SHOVELER Respiratory Rate 18 06/14/2024 8:20 PM DIRT SHOVELER Oxygen Saturation 100% 06/14/2024 11:40 AM DIRT SHOVELER Inhaled Oxygen Concentration - - Weight 77.6 kg (171 lb) 06/13/2024 6:43 AM DIRT SHOVELER Height 160 cm (5' 3 ) 06/13/2024 6:43 AM DIRT SHOVELER Body Mass Index 30.29 06/13/2024 6:43 AM DIRT SHOVELER Plan of Treatment Not on file Procedures Procedure Name Priority Date/Time Associated Diagnosis Comments N. GONORRHOEAE/C. TRACHOMATIS AMPLIFICATION STAT 05/05/2024 9:22 AM CDT from Last 3 Months or Most Recently Relevant to Health Maintenance Results * N. gonorrhoeae/C. trachomatis Amplification Urine (05/05/2024 9:22 AM CDT) C. trachomatis Not Detected Not Detected Comment:Testing performed by : [facility], [address] [place] [address]., [id number] N. gonorrhoeae Not Detected Not Detected TIEN VÁSQUEZ Comment: Interpretive Data This assay detects Chlamydia trachomatis and Neisseria gonorrhoeae by nucleic acid amplification testing (NAAT). This assay has been cleared by the [place] Food and Drug administration. The performance characteristics of this test have been verified by the [facility]. The performance characteristics of this test have not been evaluated in individuals less than 14 years of age. Current Interpretive Data last revised 2023. Testing performed by: [facility], [address] [place] [address]., [id number] Urine (None) 05/05/2024 9:22 AM CDT 05/05/2024 9:35 AM CDT Simone Crawford MD LAB MICROBIOLOGY - GEN ERAL ORDERABLES Final Result TIEN VÁSQUEZ [address] [facility] Department [place] [address] from Last 3 Months or Most Recently Relevant to Health Maintenance Insurance Member Subscriber Plan / Payer (Ef fective 2023-Present) Name:Irene Sebastian Relation to Subscriber:Self Name:Irene Sebastian Payer ID:[id number] (NAIC) Type: [employer] Address: [facility] [id number] [place] [id number] [facility] ANTH ACCESS CHOICE Advance Directives For more information, please contact: [phone] * Full Code (Latest Code Status on File) Date Activated Date Inactivated Comments 06/13/2024 6:02 AM 06/15/2024 3:50 PM Full CPR in case of cardiopulmonary arrest * Full Code Date Activated Date Inactivated Comments 06/04/2021 4:08 PM 06/06/2021 4:45 PM * Full Code Date Activated Date Inactivated Comments 06/03/2021 9:16 AM 06/04/2021 4:07 PM Full CPR i n case of cardiopulmonary arrest Care Teams Machine Group Leader Relationship Specialty Start Date End Date Jean Claude Preston MD PCP - General 4/8/21 Juliann Mehta MD [address] [place] [address] Consulting Physician Obstetrics and Gynecology 06/06/21
--- OUTSIDE RECORDS SUMMARY | 2024-11-09 17:25 | XMS_ITS | Clinical Summary ---
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 Never 05/01/2024 Do you belong to any clubs o r organizations such as yazidi groups, unions, fraternal or athletic groups, or [...] staff should administer the PHQ-9) 2 05/01/2024 [facility] Occupat ional [facility] - Occupational Stress Questionnaire Answer Date Recorded [...] things needed for daily living? No 06/13/2024 [place] Depression Scale Answer Date Recorded [place] Depression Scale Total 5 06/15/2024 The thought [...] any time in the past 12 m onths, were you homeless or living in a retirement (including now)? No 06/13/2024 Personal Safety Answer Date Recorded Have you ever been in or are you currently in a harmful physical or emotional relationship or is someone making you feel afraid or unsafe? Denies 06/13/2024 Comments No Sex and Gender Information Value Date Recorded Sex Assigned at Not on file Legal Sex Female 6:01 AM AUTOMATIC TIRE TESTER Gender Identity Not on file Sexual Orientation Not on file Obstetrics History Para Term AB IAB SAB Ectopic Multiple Livin g Live Births 3 2 2 1 1 0 2 2 Date Outcome GA Total Labor Labor/2nd/3rd Weight Sex Type Anes PTL Rachel A1 A5 Name Clin 2020 Term 39w 3d 1h 34m 1h 30m/0h 04m 3.49 kg (7 lb 11.1 oz) M Vag-Sp ont Epidur al N Livin g 6 8 RAEANN SEBASTIAN, Jaime hanks MD Complications:Shoulder Dysto taj Delivery Location:[facility] Main C ampus ([facility]) 2022 SAB 2023 Term 39w 0d 2h 04m 1h 45m/0h 15m/0h 04m 3.39 kg (7 lb 7.6 oz) F Vagina l Epidur al N Livin g 7 8 Anila Flanagan CNM Complications:None Delivery Location:[facility] Main C ampus ([facility]) Last Filed Vital Signs Vital Sign Reading Time Taken Comments Blood Pressure 103/56 06/15/2024 6:28 AM AUTOMATIC TIRE TESTER Pulse 73 06/15/2024 6:28 AM AUTOMATIC TIRE TESTER Temperature 36.7 C (98 F) 06/15/2024 6:28 AM AUTOMATIC TIRE TESTER Respiratory Rate 18 06/14/2024 8:20 PM AUTOMATIC TIRE TESTER Oxygen Saturation 100% 06/14/2024 11:40 AM AUTOMATIC TIRE TESTER Inhaled Oxygen Concentration - - Weight 77.6 kg (171 lb) 06/13/2024 6:43 AM AUTOMATIC TIRE TESTER Height 160 cm (5' 3 ) 06/13/2024 6:43 AM AUTOMATIC TIRE TESTER Body Mass Index 30.29 06/13/2024 6:43 AM AUTOMATIC TIRE TESTER Plan of Treatment Health Maintenance Due Date Last Done Comments Cervical Cancer Screening 2000 Hepatitis C Screening 2000 HPV Vaccines (2 - 2-dose series) 08/09/2012 02/07/2012 Regular Well Visit/Exam 18-64 2018 DTaP/Tdap/Td Vaccine (7 - Td or Tdap) 02/06/2022 02/07/2012, 05/26/2005, 11/26/2001, Additional history exists Influenza Vaccine (#1) 2024 05/18/2010 Chlamydia and Gonorrhea (GC/CT) Screening 05/05/2025 05/05/2024 Depression Screening 06/15/2025 06/15/2024, 05/01/2024, 05/01/2024 Hepatitis B Screening Completed 02/27/2001 , 2000, 2000, Additional history exists Pneumococcal vaccine <65 Aged Out 001, 2000, 2000 No longer eligible based on patient's age to complete this topic Varicella Vaccines Completed 03/18/2009, 08/22/2001 Procedures Procedure Name Priority Date/Time Associated Diagnosis Comments N. GONORRHOEAE/C. TRACHOMATIS AMPLIFICATION STAT 05/05/2024 9:22 AM CDT from Last 3 Months or Most Recently Relevant to Health Maintenance Results * N. gonorrhoeae/C. trachomatis Amplification Urine (05/05/2024 9:22 AM CDT) C. trachomatis Not Detected Not Detected Comment:Testing performed by : [facility], [address] [place] [address]., [id number] N. gonorrhoeae Not Detected Not Detected TIEN VÁSQUEZ Comment: Interpretive Data This assay detects Chlamydia trachomatis and Neisseria gonorrhoeae by nucleic acid amplification testing (NAAT). This assay has been cleared by the [place] Food and Drug administration. The performance characteristics of this test have been verified by the [facility]. The performance characteristics of this test have not been evaluated in individuals less than 14 years of age. Current Interpretive Data last revised 2023. Testing performed by: [facility], [address] [place] [address]., [id number] Urine (None) 05/05/2024 9:22 AM CDT 05/05/2024 9:35 AM CDT Simone Crawford MD LAB MICROBIOLOGY - GEN ERAL ORDERABLES Final Result TIEN THALIA [address] [facility] [place] [address] from Last 3 Months or Most Recently Relevant to Health Maintenance Insurance DALY ACCESS CHOICE [facility] ANTHHandseeing Information ACCESS CHOICE Advance Directives For more information, please contact: [phone] * Full Code (Latest Code Status on [...] n case of cardiopulmonary arrest Care Teams Teaching Aide Relationship Specialty Start Date End Date Jean Claude Preston MD PCP - General 10/21/20 Juliann Mehta MD [facility] [place] [address] Consulting Physician Obstetrics and Gynecology 06/06/21
--- OUTSIDE RECORDS SUMMARY | 2024-11-09 17:25 | XMS_ITS | Clinical Summary ---
Author Organization [facility] Address [address] [place] [address] Care Team Providers Care Clinical Pharmacy Coordinator Name Role Phone None, Provider MD Primary Care Provider Unavaila ble Allergies No known active allergies Medications No known medications Social History Tobacco Use Types Packs/Day Years Used Date Smoking Tobacco: Never Smokeless Tobacco: Never Tobacco Cessation:Counseling Given: Not Answered Alcohol Use Standard Drinks/Week Comments Not Currently 0 (1 standard drink = 0.6 oz pur e alcohol) Comments No Sex and Gender Information Value Date Recorded Sex Assigned at Not on file Legal Sex Female 7:45 AM CAR CONSTRUCTION SUPERINTENDENT Gender Identity Not on file Sexual Orientation Not on file Last Filed Vital Signs Vital Sign Reading Time Taken Comments Blood Pressure 107/68 06/28/2022 9:12 AM CAR CONSTRUCTION SUPERINTENDENT Pulse 105 06/28/2022 9:12 AM CAR CONSTRUCTION SUPERINTENDENT Temperature 37.4 C (99.4 F) 06/28/2022 6:36 AM CAR CONSTRUCTION SUPERINTENDENT Respiratory Rate 17 06/28/2022 8:17 AM CAR CONSTRUCTION SUPERINTENDENT Oxygen Saturation 100% 06/28/2022 9:12 AM CAR CONSTRUCTION SUPERINTENDENT Inhaled Oxygen Concentration - - Weight 67.1 kg (148 lb) 06/28/2022 6:36 AM CAR CONSTRUCTION SUPERINTENDENT Height 160 cm (5' 3 ) 06/28/2022 6:36 AM CAR CONSTRUCTION SUPERINTENDENT Body Mass Index 26.22 06/28/2022 6:36 AM CAR CONSTRUCTION SUPERINTENDENT Plan of Treatment Health Maintenance Due Date Last Done Comments Cervical Cancer Screening Pap Smear (Age 21 to 29) Every 3 Years 2000 Cervical Cancer Screening 2000 Annual Physical 2003 HPV Vaccines (2 - 2-dose series) 08/09/2012 02/07/2012 Hepatitis C 2018 Meningococcal B Vaccine (2 of 2 - Bexsero SCDM 2-dose series) 07/30/2019 01/27/2019 DTaP, Tdap and Td Vaccines (7 - Td or Tdap) 02/06/2022 02/07/2012, 05/26/2005, 11/26/2001, Additional history exists COVID-19 Vaccine (2023- season) 2024 Hepatitis B Vaccines Completed 02/27/2001, 2000, 2000, Additional history exists Pneumococcal Vaccine: Pediatrics (0 to 5 Years) and At-Risk Patients (6 to 49 Years) Aged Out 02/27/2001, 2000, 2000 No longer eligible based on patient's age to complete this topic Meningococcal Vaccine Completed 01/27/2019, 012 RSV Immunizations Under 20 Months Aged Out No longer eligible based on patient's age to complete this topic Insurance Care Teams Clinical Pharmacy Coordinator Relationship Specialty Start Date End Date None, Provider, MD PCP - General UNKNOWN PHYSICIAN SPECIALTY 06/21/22
--- NOTE | 2024-11-09 17:46 | ECG_ITS ---
Test Date: 2024-11-09 17:55:41 Measurements Intervals [place] Rate: 98 P: 42 [place]: 166 QRS: 46 QRSD: 86 T: 46 QT: 341 QTc: 436 Interpretive Statements SINUS RHYTHM POSSIBLE RIGHT VENTRICULAR CONDUCTION DELAY BASELINE WANDER- AVF BORDERLINE ECG Compared to ECG 03/11/2024 10:43:55 HEART RATE HAS DECREASED Electronically Signed On 11-09-2024 18:43:06 CDT by Chris Aviles D.O.
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
[2024-11-09 18:02] VITALS: BP 113/92; PULSE 97; RESP 20; O2SAT 100; O2SAT 97
--- OUTSIDE RECORDS SUMMARY | 2024-11-09 18:06 | XMS_ITS | Referral Summary ---
Author Organization [place] [id number] [facility] Address [address] [place] [address] Care Team Providers Care Director Of Personnel Name Role Phone Jean Claude Preston MD Primary Care Provider Juliann Mehta MD Unavailable [phone] Allergies No known active allergies Medications [...] often do you attend chur ch or religion services? Never 05/01/2024 Do you belong to any clubs o r organizations such as druze groups, unions, fraternal or athletic groups, or [...] staff should administer the PHQ-9) 2 05/01/2024 [facility] of Occupat ional [facility] - Occupational Stress Questionnaire Answer Date Recorded [...] things needed for daily living? No 06/13/2024 [place] Depression Scale Answer Date Recorded [place] Depression Scale Total 5 06/15/2024 The thought [...] any time in the past 12 m [facility], were you homeless or living in a fci (including now)? No 06/13/2024 Personal Safety Answer Date Recorded Have you ever been in or are you currently in a harmful physical or emotional relationship or is someone making you feel afraid or unsafe? Denies 06/13/2024 Comments No Sex and Gender Information Value Date Recorded Sex Assigned at Not on file Legal Sex Female 6:01 AM PIGMENT FURNACE TENDER Gender Identity Not on file Sexual Orientation Not on file Last Filed Vital Signs Vital Sign Reading Time Taken Comments Blood Pressure 103/56 06/15/2024 6:28 AM PIGMENT FURNACE TENDER Pulse 73 06/15/2024 6:28 AM PIGMENT FURNACE TENDER Temperature 36.7 C (98 F) 06/15/2024 6:28 AM PIGMENT FURNACE TENDER Respiratory Rate 18 06/14/2024 8:20 PM PIGMENT FURNACE TENDER Oxygen Saturation 100% 06/14/2024 11:40 AM PIGMENT FURNACE TENDER Inhaled Oxygen Concentration - - Weight 77.6 kg (171 lb) 06/13/2024 6:43 AM PIGMENT FURNACE TENDER Height 160 cm (5' 3 ) 06/13/2024 6:43 AM PIGMENT FURNACE TENDER Body Mass Index 30.29 06/13/2024 6:43 AM PIGMENT FURNACE TENDER Plan of Treatment Not on file Procedures Procedure Name Priority Date/Time Associated Diagnosis Comments N. GONORRHOEAE/C. TRACHOMATIS AMPLIFICATION STAT 05/05/2024 9:22 AM CDT from Last 3 Months or Most Recently Relevant to Health Maintenance Results * N. gonorrhoeae/C. trachomatis Amplification Urine (05/05/2024 9:22 AM CDT) C. trachomatis Not Detected Not Detected Comment:Testing performed by : [facility], [address] [place] [address]., [id number] N. gonorrhoeae Not Detected Not Detected TIEN VÁSQUEZ Comment: Interpretive Data This assay detects Chlamydia trachomatis and Neisseria gonorrhoeae by nucleic acid amplification testing (NAAT). This assay has been cleared by the [place] Food and Drug administration. The performance characteristics of this test have been verified by the [facility]. The performance characteristics of this test have not been evaluated in individuals less than 14 years of age. Current Interpretive Data last revised 2023. Testing performed by: [facility], [address] [place] [address]., [id number] Urine (None) 05/05/2024 9:22 AM CDT 05/05/2024 9:35 AM CDT Simone Crawford MD LAB MICROBIOLOGY - GEN ERAL ORDERABLES Final Result TIEN VÁSQUEZ [address] [facility] Department [place] [address] from Last 3 Months or Most Recently Relevant to Health Maintenance Insurance Member Subscriber Plan / Payer (Ef fective 2023-Present) Name:Irene Sebastian Relation to Subscriber:Self Name:Irene Sebastian Payer ID:[id number] (NAIC) Type: [employer] Address: [facility] [id number] [facility] ANTH ACCESS CHOICE Advance Directives For more information, please contact: [phone] * Full Code (Latest Code Status on [...] n case of cardiopulmonary arrest Care Teams Director Of Personnel Relationship Specialty Start Date End Date Jean Claude Preston MD PCP - General 4/8/21 Juliann Mehta MD [address] [place] [address] Consulting Physician Obstetrics and Gynecology 06/06/21
--- OUTSIDE RECORDS SUMMARY | 2024-11-09 18:06 | XMS_ITS | Clinical Summary ---
Author Organization [place] [id number] Address [address] [place] [address] Care Team Providers Care Inorganic Chemistry Professor Name Role Phone Jean Claude Preston MD Primary Care Provider Juliann Mehta MD Unavailable [phone] Allergies No known active allergies Medications [...] often do you attend chur ch or moravian services? Never 05/01/2024 Do you belong to any clubs o r organizations such as roman catholic groups, unions, fraternal or athletic groups, or [...] staff should administer the PHQ-9) 2 05/01/2024 [facility] [place] of Occupat ional Health - Occupational Stress [...] things needed for daily living? No 06/13/2024 [place] Depression Scale Answer Date Recorded [place] Depression Scale Total 5 06/15/2024 The thought [...] were you homeless or living in a senior care (including now)? No 06/13/2024 Personal Safety Answer Date Recorded Have you ever been in or are you currently in a harmful physical or emotional relationship or is someone making you feel afraid or unsafe? 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 Gender Identity Not on file Sexual Orientation [...] Jaime hanks MD Complications:Shoulder Dysto taj Delivery Location:[facility] Main C ampus ([facility]) 2022 SAB 2023 Term 39w 0d 2h 04m 1h 45m/0h 15m/0h 04m 3.39 kg (7 lb 7.6 oz) F Vagina l Epidur al N Livin g 7 8 Anila Flanagan CNM Complications:None Delivery Location:[facility] Main C ampus ([facility]) Last Filed Vital Signs Vital Sign Reading Time Taken Comments Blood Pressure 103/56 06/15/2024 6:28 AM ASSISTANT COMMUNITY DIRECTOR Pulse 73 06/15/2024 6:28 AM ASSISTANT COMMUNITY DIRECTOR Temperature 36.7 C (98 F) 06/15/2024 6:28 AM ASSISTANT COMMUNITY DIRECTOR Respiratory Rate 18 06/14/2024 8:20 PM ASSISTANT COMMUNITY DIRECTOR Oxygen Saturation 100% 06/14/2024 11:40 AM ASSISTANT COMMUNITY DIRECTOR Inhaled Oxygen Concentration - - Weight 77.6 kg (171 lb) 06/13/2024 6:43 AM ASSISTANT COMMUNITY DIRECTOR Height 160 cm (5' 3 ) 06/13/2024 6:43 AM ASSISTANT COMMUNITY DIRECTOR Body Mass Index 30.29 06/13/2024 6:43 AM ASSISTANT COMMUNITY DIRECTOR Plan of Treatment Health Maintenance Due Date [...] Detected Not Detected Comment:Testing performed by : [facility], [address] [place] [address]., [id number] N. gonorrhoeae Not Detected Not Detected TIEN VÁSQUEZ Comment: Interpretive Data This assay detects Chlamydia trachomatis and Neisseria gonorrhoeae by nucleic acid amplification testing (NAAT). This assay has been cleared by the [place] Food and Drug administration. The performance characteristics of this test have been verified by the [facility]. The performance characteristics of this test have not been evaluated in individuals less than 14 years of age. Current Interpretive Data last revised 2023. Testing performed by: [facility], [address] [place] [address]., [id number] Urine (None) 05/05/2024 9:22 AM CDT 05/05/2024 9:35 AM CDT Simone Crawford MD LAB MICROBIOLOGY - GEN ERAL ORDERABLES Final Result TIEN THALIA [address] [facility] [place] [address] from Last 3 Months or Most Recently Relevant to Health Maintenance Insurance [employer] ACCESS CHOICE [facility] [employer] ACCESS CHOICE Advance Directives For more information, please contact: [phone] * Full Code (Latest Code Status on [...] n case of cardiopulmonary arrest Care Teams Inorganic Chemistry Professor Relationship Specialty Start Date End Date Jean Claude Preston MD PCP - General 10/21/20 Juliann Mehta MD [facility] [place] [address] Consulting Physician Obstetrics and Gynecology 06/06/21
--- OUTSIDE RECORDS SUMMARY | 2024-11-09 18:06 | XMS_ITS | Clinical Summary ---
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 DRIVER Gender Identity Not on file Sexual Orientation Not on file Last Filed Vital Signs Vital Sign Reading Time Taken Comments Blood Pressure 107/68 06/28/2022 9:12 AM CPR AMBULANCE DRIVER Pulse 105 06/28/2022 9:12 AM CPR AMBULANCE DRIVER Temperature 37.4 C (99.4 F) 06/28/2022 6:36 AM CPR AMBULANCE DRIVER Respiratory Rate 17 06/28/2022 8:17 AM CPR AMBULANCE DRIVER Oxygen Saturation 100% 06/28/2022 9:12 AM CPR AMBULANCE DRIVER Inhaled Oxygen Concentration - - Weight 67.1 kg (148 lb) 06/28/2022 6:36 AM CPR AMBULANCE DRIVER Height 160 cm (5' 3 ) 06/28/2022 6:36 AM CPR AMBULANCE DRIVER Body Mass Index 26.22 06/28/2022 6:36 AM CPR AMBULANCE DRIVER Plan of Treatment Health Maintenance Due Date [...] patient's age to complete this topic Insurance C/[employer] [id number] Care Teams Second Worker Relationship Specialty Start Date End Date None, Provider, MD PCP - General UNKNOWN PHYSICIAN SPECIALTY 06/21/22
--- OUTSIDE RECORDS SUMMARY | 2024-11-09 18:06 | XMS_ITS | Clinical Summary ---
Author Organization [facility] Address [address] [place] [address] Care Team Providers Care Cover Creaser Name Role Phone Unavailable Primary Care Provider Unavailabl e Source Comments [facility],non-owned Affiliates and Associated Physician Practices is amultiple site organization consisting of ambulatory clinics and hospital sitesin [place], [place], [place] and [place]. This disclosure is being madepursuant to the Care Everywhere program and may not contain all information available regarding this patient. 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 us Tiffany Giordano MD LAB - MICROBIOLOGY ORDERABLES Fi nal Result [facility] MICROBIOLOGY [address] [place] [address], [facility] [phone] from Last 3 Months or Most Recently Relevant to Health Maintenance Insurance ANTHEM ANTHEM
[2024-11-09 18:59] VITALS: BP 106/69; PULSE 100; RESP 20; O2SAT 100
== END 2024-11-09 19:02 | disposition home or self-care (01) ==
PROVIDERS: Emergency Provider Emergency Medicine
DX: T75.4XXA Electrocution, initial encounter (principal); W86.0XXA Exposure to domestic wiring and appliances, initial encounter
CPT/HCPCS: 31899; 93005; 99283